=== PATIENT | female | born 1975 | race Two or more races ===

== ENCOUNTER 2019-10-28 10:29 | Emergency (ER) | payer OTHER ==
[~2019-10-28] VITALS: Ht 165.1 cm; Wt 72.6 kg
[~2019-10-28 10:29] MED LIST: ACET-73 PO
[2019-10-28 10:50] VITALS: BP_SYST 150
--- NOTE | 2019-10-28 10:55 | NUR ---
Patient to ER bed 04 to gown for evaluation. Side rails up.
--- NOTE | 2019-10-28 10:56 | NUR ---
Patient arrived in the ED c/o pain, swelling and bruising on left ankle post mechanical fall. Denied any nausea or vomiting. Denied any shortness of breath. Alert and oriented x4, respirations even and unlabored, ambulating with a steady gait, speaking in full sentences. VS WNL, pain level 7/10. Informed of the wait time. Instructed to notify ED staff if there are any changes in condition or worsening of symptoms. Patient verbalized understanding.
[2019-10-28] MEDS ORDERED: ACETAMINOPHEN/CODEINE 300 MG-30 MG TABLET PO ONE (11:00)
--- NOTE | 2019-10-28 11:00 | NUR ---
DESEAN Rowland at bedside examining patient.
--- NOTE | 2019-10-28 11:10 | NUR ---
Administered Tylenol #[address] Rowland. Patient tolerated the medication well.
--- NOTE | 2019-10-28 11:16 | NUR ---
X-ray done at bedside as ordered by Dr. Rowland. Patient tolerated the procedure well.
[2019-10-28 12:16] VITALS: BP_SYST 131
--- NOTE | 2019-10-28 12:18 | NUR ---
Patient given written and verbal discharge instructions and verbalizes understanding. ER MD discussed with patient the results and treatment provided. Patient in stable condition. ID arm band removed. Rx of Ibuprofen and Tylenol #3 given. Patient educated on pain management and to follow up with PMD. Pain Scale 0/10. Opportunity for questions provided and answered. Medication side effect fact sheet provided.
== END 2019-10-28 12:16 | disposition home or self-care (01) ==
LOC: SED 10:29
DX: S93.402A Sprain of unspecified ligament of left ankle, initial encounter (principal); X50.1XXA Overexertion from prolonged static or awkward postures, initial encounter; Y93.89 Activity, other specified; Y92.89 Other specified places as the place of occurrence of the external cause; Y99.8 Other external cause status
CPT/HCPCS: 99283

== ENCOUNTER 2021-05-20 14:01 | Emergency (ER) | payer OTHER ==
[~2021-05-20] VITALS: Ht 157.5 cm; Wt 89.4 kg
[2021-05-20 14:15] VITALS: BP_SYST 167
[2021-05-20] MEDS ORDERED: ONDANSETRON 4 MG ODT TAB PO ONE (14:45)
[2021-05-20] MEDS ORDERED: KETOROLAC TROMETHAMINE 60 MG/2 ML VIAL IM ONE (15:15)
[2021-05-20] MEDS ORDERED: LORazepam 2 MG/ML VIAL IM ONE (15:30)
[2021-05-20] MEDS ORDERED: HYDR-3917 PO (15:39)
[2021-05-20] MEDS ORDERED: LOPE2CAP PO (15:39)
[2021-05-20] MEDS ORDERED: ONDA4TAB5 PO (15:39)
[2021-05-20 15:46] VITALS: BP_SYST 167
== END 2021-05-20 15:47 | disposition home or self-care (01) ==
LOC: SED 14:01
DX: R10.9 Unspecified abdominal pain (principal); R11.2 Nausea with vomiting, unspecified; R19.7 Diarrhea, unspecified; Z79.899 Other long term (current) drug therapy
CPT/HCPCS: 81002; 81025; 96372; 99283; J1885

== ENCOUNTER 2022-03-04 14:26 | Emergency (ER) | payer OTHER ==
[~2022-03-04] VITALS: Ht 154.9 cm; Wt 90.7 kg
[~2022-03-04 14:26] MED LIST changes: +HYDR-3917 PO; +LOPE2CAP PO; +ONDA4TAB5 PO
[2022-03-04 14:28] VITALS: BP_SYST 187
--- NOTE | 2022-03-04 14:33 | NUR ---
Patient to ER bed 03 to gown for evaluation. Side rails up.
--- NOTE | 2022-03-04 14:34 | NUR ---
Pt brought by self,A&O x 4, pt presents to ER with R lower back pain radiating to R leg x 1 week , pt states pain started while lifting weight at work, skin pink and warm, cap refill <3, will cont to monitor
--- NOTE | 2022-03-04 14:36 | NUR ---
Dr Shrestha evaluating patient at bedside
[2022-03-04] MEDS ORDERED: KETOROLAC TROMETHAMINE 60 MG/2 ML VIAL IM ONE (14:45)
[2022-03-04] MEDS ORDERED: HYDROcodone/ACETAMIN 10-325 MG TAB PO ONE (14:45)
--- NOTE | 2022-03-04 15:13 | NUR ---
Report given to Ct WIHTE
--- NOTE | 2022-03-04 15:25 | NUR ---
First contact with patient upon assuming care. Pt alert and oriented x 3. Resting in bed. Stated LE now feels "relaxed" and she can straighten it. Awaiting further dispo.
[2022-03-04] MEDS ORDERED: HYDR-3917 PO (16:21)
[2022-03-04] MEDS ORDERED: IBUP-1969 PO (16:21)
[2022-03-04 16:26] VITALS: BP_SYST 187
--- NOTE | 2022-03-04 16:27 | NUR ---
Patient given written and verbal discharge instructions and verbalizes understanding. ER MD discussed with patient the results and treatment provided. Patient in stable condition. ID arm band removed. Rx of Hydrocodone and Ibuprofen given. Patient educated on pain management and to follow up with PMD. Pain Scale 2/10. Opportunity for questions provided and answered. Medication side effect fact sheet provided.
== END 2022-03-04 16:26 | disposition home or self-care (01) ==
LOC: SED 14:26
DX: M54.31 Sciatica, right side (principal); Z79.899 Other long term (current) drug therapy
CPT/HCPCS: 81025; 96372; 99283; J1885

== ENCOUNTER 2022-06-05 19:00 | Emergency (ER) | payer OTHER ==
[~2022-06-05] VITALS: Ht 157.5 cm; Wt 86.2 kg
[~2022-06-05 19:00] MED LIST changes: +IBUP-1969 PO
[2022-06-05 19:17] VITALS: BP_SYST 174
--- NOTE | 2022-06-05 19:22 | NUR ---
PATIENT HAVING LOWER RIGHT ABDOMINAL PAIN THAT RADIATES TO BACK X 1 DAY WITH VOMITING.
[2022-06-05] MEDS ORDERED: ONDANSETRON 4 MG ODT TAB PO ONE (19:30)
[2022-06-05 20:16] LABS: BASOPHILS # (AUTO) 0.2 K/uL (0.0-0.2); EOSINOPHILS # (AUTO) 0.1 K/uL (0.0-0.4); EOSINOPHILS % (AUTO) 0.7 % (0.0-4.0); HEMATOCRIT 43.9 % (36-48); HEMOGLOBIN 14.4 g/dL (12.0-16.0); LYMPHOCYTES # (AUTO) 1.6 K/uL (1.0-5.5); LYMPHOCYTES % (AUTO) 15.8 % (20.5-51.5); MEAN CORPUSCULAR HEMOGLOBIN 31 pg (27-31); MEAN CORPUSCULAR HGB CONC 33 % (32-36); MEAN CORPUSCULAR VOLUME 93 fL (79.0-98.0); MONOCYTES # (AUTO) 0.4 K/uL (0.0-1.0); MONOCYTES % (AUTO) 3.8 % (1.7-9.3); NEUTROPHILS % (AUTO) 77.7 % (40.0-70.0); PLATELET COUNT (AUTO) 305 K/uL (130-430); RED BLOOD CELL COUNT(AUTO) 4.73 MIL/uL (4.2-6.2); WHITE BLOOD COUNT (AUTO) 10.3 K/uL (4.8-10.8)
[2022-06-05 20:24] LABS: CALCIUM 9.5 mg/dL (8.4-11.0); CREATININE 0.97 mg/dL (0.55-1.30); POTASSIUM 3.6 mmol/L (3.5-5.1)
[2022-06-05 20:30] LABS: ALBUMIN 3.8 g/dL (3.4-4.8); TOTAL BILIRUBIN 0.5 mg/dL (0.0-1.0)
--- NOTE | 2022-06-05 22:09 | NUR ---
Patient to ER bed 06 to gown for evaluation. Side rails up. Report given to CINDY ARCINIEGA.
[2022-06-05] MEDS ORDERED: KETOROLAC TROMETHAMINE 30 MG VIAL IVP ONE (23:00)
[2022-06-05] MEDS ORDERED: NACL 0.9% 1,000 ML IV ONE (23:00)
--- NOTE | 2022-06-05 23:43 | NUR ---
BIB AMB WITH TRIAGE NURSE. C/O RLQ ABD PAIN X1 DAY WITH DYSURIA,
--- NOTE | 2022-06-05 23:45 | NUR ---
# 22 gauge angiocath placed to LT HAND. Use of asceptic technique. Opsite placed over site. Blood return noted. Flushed with 10 cc of normal saline. No evidence of infiltration noted. Patient tolerated well.
--- NOTE | 2022-06-05 23:45 | NUR ---
Note sudhakarone in EDM - 06/05/22 at 2357 by [email or web address] # 20 gauge angiocath placed to LT HAND. Use of asceptic technique. Opsite placed over site. Blood return noted. Flushed with 10 cc of normal saline. No evidence of infiltration noted. Patient tolerated well.
[2022-06-05 23:48] LABS: BILIRUBIN,URINE NEGATIVE (NEGATIVE); BLOOD, URINE NEGATIVE (NEGATIVE); CLARITY/URINE CLEAR (CLEAR); COLOR,URINE YELLOW (YELLOW); GLUCOSE,URINE NEGATIVE (NEGATIVE); KETONES,URINE TRACE (NEGATIVE); LEUKOCYTE ESTERASE ,URINE NEGATIVE (NEGATIVE); NITRITE, URINE NEGATIVE (NEGATIVE); PH,URINE 5.5 (5.0-8.0); PROTEIN URINE NEGATIVE (NEGATIVE); UROBILINOGEN,URINE 0.2 (0.2-1.0)
--- NOTE | 2022-06-06 00:10 | NUR ---
TO CT SCAN VIA W/C WITH TECH
--- NOTE | 2022-06-06 00:29 | NUR ---
CINDY STEWART RETURN FROM CT SCAN WITH TECH. PAIN LEVAL 05/22 AT THIS TIME. CONTINUED MONITORING
[2022-06-06] MEDS ORDERED: TRAM50TA2 PO (01:39)
[2022-06-06] MEDS ORDERED: IBUP-1969 PO (01:39)
[2022-06-06] MEDS ORDERED: MORPHINE 4 MG INJ. 4 MG/ML VIAL IVP ONE (01:45)
--- NOTE | 2022-06-06 02:10 | NUR ---
PT MEDICATED FOR PAIN LEVAL 05/22 AFTR TORDOL MEDICATION, PRIOR TO D/C TO HOME. WILL DRIVE PT HOME FOR SAFETY. CONTINUED MONITORING.
--- NOTE | 2022-06-06 02:47 | NUR ---
PT STABLE FOR D/C TO HOME WITH . PT VERBALIZES UNDERSTANDING OF AFTERCARE/ RX. IV D/C TO RIGHT HAND WITH CATH INTACT AND PRESSURE DRESSING APPLIED. TO LOBBY AMB WITH ALL PAPERWORK IN HAND
[2022-06-06 02:49] VITALS: BP_SYST 139
== END 2022-06-06 02:49 | disposition home or self-care (01) ==
LOC: SED 19:00
DX: R10.31 Right lower quadrant pain (principal); R11.2 Nausea with vomiting, unspecified; Z79.899 Other long term (current) drug therapy
CPT/HCPCS: 99284; 96374; 96361; 80053; 83690; 85025; 36415; 81025; 81003; 74176; 96375; 76376; Q0162; J1885; J7030; J2270

== ENCOUNTER 2022-07-28 09:21 | Emergency (ER) | payer OTHER ==
[~2022-07-28] VITALS: Ht 160 cm; Wt 90.7 kg
[~2022-07-28 09:21] MED LIST changes: +TRAM50TA2 PO
[2022-07-28 09:28] VITALS: BP_SYST 133
--- NOTE | 2022-07-28 09:30 | NUR ---
EDP AT BEDSIDE FOR INITIAL ASSESSMENT.
--- NOTE | 2022-07-28 09:33 | NUR ---
Patient to ER bed 3 to gown for evaluation. Side rails up. Report given to
--- NOTE | 2022-07-28 09:46 | NUR ---
X-RAY IN PROGRESS AT BEDSIDE.
[2022-07-28] MEDS ORDERED: IBUPROFEN 600 MG TABLET PO ONE (10:15)
[2022-07-28] MEDS ORDERED: HYDR-3917 PO (10:15)
[2022-07-28] MEDS ORDERED: IBUP-1969 PO (10:15)
[2022-07-28] MEDS ORDERED: HYDROcodone/ACETAMIN 7.5-325 MG TAB PO ONE (10:15)
[2022-07-28 10:25] VITALS: BP_SYST 128
--- NOTE | 2022-07-28 10:25 | NUR ---
Patient given written and verbal discharge instructions and verbalizes understanding. ER MD discussed with patient the results and treatment provided. Patient in stable condition. ID arm band removed. Rx of [place] and Motrin given. Patient educated on pain management and to follow up with PMD. Pain Scale 0/10. Opportunity for questions provided and answered. Medication side effect fact sheet provided.
== END 2022-07-28 10:25 | disposition home or self-care (01) ==
LOC: SED 09:21
DX: S83.91XA Sprain of unspecified site of right knee, initial encounter (principal); Z79.899 Other long term (current) drug therapy; Y04.0XXA Assault by unarmed brawl or fight, initial encounter; Y93.89 Activity, other specified; Y92.89 Other specified places as the place of occurrence of the external cause; Y99.8 Other external cause status
CPT/HCPCS: 73564; 99283

== ENCOUNTER 2023-06-05 18:12 | Emergency (ER) | payer MEDICAID, OTHER ==
[~2023-06-05] VITALS: Ht 160 cm; Wt 72.6 kg
[2023-06-05 18:53] VITALS: BP_SYST 165; PULSE 82; RESP 18; TEMP 97.7; O2SAT 97
[2023-06-05 19:16] LABS: BILIRUBIN,URINE 1+ (NEGATIVE); BLOOD, URINE NEGATIVE (NEGATIVE); CLARITY/URINE SL CLOUDY (CLEAR); COLOR,URINE YELLOW (YELLOW); GLUCOSE,URINE NEGATIVE (NEGATIVE); KETONES,URINE TRACE (NEGATIVE); LEUKOCYTE ESTERASE ,URINE TRACE (NEGATIVE); NITRITE, URINE NEGATIVE (NEGATIVE); PH,URINE 6.5 (5.0-8.0); PROTEIN URINE TRACE (NEGATIVE)
[2023-06-05 19:42] LABS: BACTERIA,URINE MODERATE /HPF (None Seen); MUCUS,URINE 3+ /LPF (None Seen); RBC,URINE 0-3 /HPF (0-3)
--- NOTE | 2023-06-05 20:05 | NUR ---
PT TO ED 4 WITH C/O SOB. ASSESSMENT COMPLETED. AWAITING MD BOWLES AND ORDERS.
--- NOTE | 2023-06-05 20:15 | NUR ---
MD BONILLA AT BEDSIDE FOR EVALUATION AND ORDERS.
[2023-06-05] MEDS ORDERED: KETOROLAC TROMETHAMINE 60 MG/2 ML VIAL IM ONE (20:45)
[2023-06-05] MEDS ORDERED: CIPR500T5 PO (20:58)
[2023-06-05] MEDS ORDERED: IBUP-1971 PO (20:58)
[2023-06-05 21:12] VITALS: BP_SYST 134; PULSE 86; RESP 18; TEMP 98.4; O2SAT 97
--- NOTE | 2023-06-05 21:17 | NUR ---
Patient given written and verbal discharge instructions and verbalizes understanding. ER MD BONILLA discussed with patient the results and treatment provided. Patient in stable condition. ID arm band removed. IV catheter removed intact and dressing applied, no active bleeding. Rx of CIPRO AND IBUPROFEN given. Patient educated on pain management and to follow up with PMD. Pain Scale 3 . Opportunity for questions provided and answered. Medication side effect fact sheet provided.
== END 2023-06-05 21:12 | disposition home or self-care (01) ==
LOC: SED 18:12
DX: N39.0 Urinary tract infection, site not specified (principal); M54.50 Low back pain, unspecified; R68.83 Chills (without fever); Z79.899 Other long term (current) drug therapy
CPT/HCPCS: 99283; 96374; 81000; 87086; 81025; J1885